=== PATIENT | female | born 1995 | race Two or more races ===

== ENCOUNTER 2025-01-30 21:02 | Emergency (ER) | payer BC ==
[~2025-01-30] VITALS: Ht 157.5 cm; Wt 59.9 kg
[2025-01-30] MEDS ORDERED: METHYLPREDNISOLONE SOD SUCC 125 MG VIAL IM STA (23:10)
[2025-01-30] MEDS ORDERED: CEFTRIAXONE SODIUM 1,000 MG VIAL IM STA (23:10)
[2025-01-30] MEDS ORDERED: ALBUTEROL SULFATE 3 ML/2.5 MG AMPUL.NEB IH STA (23:10)
[2025-01-30] MEDS ORDERED: METHYLPREDNISOLONE SOD SUCC 125 MG VIAL ONE (23:45)
[2025-01-30] MEDS ORDERED: CEFTRIAXONE SODIUM 1,000 MG VIAL ONE (23:45)
[2025-01-30] MEDS ORDERED: WATER FOR INJ.,BACTERIOSTATIC 30 ML VIAL IJ ONE (23:47)
[2025-01-31] MEDS ORDERED: ALBUTEROL SULFATE 3 ML/2.5 MG AMPUL.NEB IH ONE (00:23)
[2025-01-31 00:25] LABS: BASO % 0.2 % (0.1-1.2); EOS # 0.02 (0.04-0.54); EOS % 0.3 % (0.7-7.0); LYMPH # 2.07 (1.18-3.74); LYMPH % 31.2 % (19.3-53.1); MEAN PLATELET VOLUME 9.90 fl (9.4-12.4); MONO # 0.48 (0.24-0.82); MONO % 7.2 % (4.7-12.5); NEUT # 4.04 (1.56-6.13); NEUT % 60.8 % (34.0-71.1); RED CELL DISTRIBUTION WIDTH 13.8 % (11.6-14.4)
[2025-01-31 01:52] LABS: BUN CREA RATIO 18.0 (7.0-25.0); CREATININE SERUM 0.79 mg/dL (0.55-1.02); GFR 87.3; GLUCOSE FASTING 91.0 mg/dL (65-100); OSMOLALITY SERUM 276.0 MOSM/KG (275-295)
[2025-01-31 02:19] LABS: COVID-19 AG NEGATIVE (NEGATIVE)
[2025-01-31 04:18] LABS: URINE APPEARANCE Clear; URINE BILIRRUBIN Negative (NEGATIVE); URINE BLOOD Large; URINE COLOR Dark Yellow; URINE GLUCOSE Negative (NEGATIVE); URINE LEUKOCYTE Moderate; URINE NITRATE Negative; URINE UROBILINOGEN 1.0 E.U./dl
[2025-01-31 04:22] LABS: URINE EPITHELIAL CELLS 31.5 uL (0.0-38.8); URINE RBC 947.1 uL (0.0-20.8); URINE WBC 256.1 uL (0.0-23.2)
[2025-01-31 04:24] LABS: URINE CAST 0.42 uL (0.0-1.40); URINE KETONE 80 (NEGATIVE); URINE PROTEIN 100 (NEGATIVE)
== END 2025-01-31 04:57 | disposition home or self-care (01) ==
LOC: ER 21:02
PROVIDERS: General Practice
DX: J10.1 Influenza due to other identified influenza virus with other respiratory manifestations (principal); R50.9 Fever, unspecified; Z20.822 Contact with and (suspected) exposure to COVID-19